=== PATIENT | female | born 1995 | race African-American/Black ===

== ENCOUNTER 2018-10-01 09:47 | Outpatient (CLI) | payer MEDICAID ==
--- NOTE | 2018-10-01 12:36 | ULT ---
TRANSVAGINAL PELVIC ULTRASOUND WITH DOPPLER: HISTORY: Pelvic pain. COMPARISON: None. TECHNIQUE: Real-time, marie-scale, color Doppler, and spectral analysis of the pelvis is performed with a transab dominal and transvaginal approach. FINDINGS: The uterus is retroverted, measuring 6.8 x 3.8 x 4.5 cm. Endometrial thickness is 4 mm. The right ovary measures 2.5 x 2.8 x 2.4 cm. The left ovary measures 2.8 x 2.6 x 2.3 cm. Adequate v ascular flow to both ovaries. Normal ovarian follicles. Small volume free fluid in the pelvis, likely physiologic. IMPRESSION: Normal examination. POS: TPC
== END 2018-10-01 09:48 | disposition home or self-care (01) ==
LOC: ULT 09:47
PROVIDERS: ATTEND Advanced Practice Midwife
DX: N92.1 Excessive and frequent menstruation with irregular cycle (principal)
CPT/HCPCS: 76856

== ENCOUNTER 2018-12-04 08:01 | Outpatient (CLI) | payer MEDICAID ==
--- NOTE | 2018-12-04 08:58 | ULT ---
DELETE POS: OFF
--- NOTE | 2018-12-05 08:06 | ULT ---
LIMITED RIGHT BREAST ULTRASOUND LIMITED LEFT BREAST ULTRASOUND: History: Pain and lumps in the breasts. FINDINGS: Limited sonographic evaluation of the areas of palpable concern/lump in the right breast at the 6 o'c lock position and the left breast at the 1 o'clock position demonstrates no abnormality. IMPRESSION: BIRADS category 2 - benign findings. Recommend age appropriate mammographic screenings based on risk factors. POS: OFF
== END 2018-12-04 08:02 | disposition home or self-care (01) ==
LOC: BICULT 08:01
PROVIDERS: ATTEND Nurse Practitioner Family
DX: N64.4 Mastodynia (principal)